=== PATIENT | male | born 1940 | race Caucasian/White ===

== ENCOUNTER 2017-07-20 08:15 | Day surgery (SDC) | payer OTHER ==
[~2017-07-20] VITALS: Ht 175.3 cm; Wt 107.0 kg
[~2017-07-20 08:15] MED LIST: CALCIUM500 M4 PO; COUMADIN2.5 MG PO; LASIX20 MG PO; LIPITOR40 MG PO; LISINOPRIL30 MG PO; METOPROLOL SUC100 MG PO; ULORIC80 MG PO; VITAMIN B-2100 MG PO
== END 2017-07-20 18:36 | disposition home or self-care (01) ==
LOC: CATH 08:15
DX: I25.10 Atherosclerotic heart disease of native coronary artery without angina pectoris (principal); I25.82 Chronic total occlusion of coronary artery; I12.9 Hypertensive chronic kidney disease with stage 1 through stage 4 chronic kidney disease, or unspecified chronic kidney disease; N18.3 Chronic kidney disease, stage 3 (moderate); I48.2 Chronic atrial fibrillation; E78.5 Hyperlipidemia, unspecified; E66.01 Morbid (severe) obesity due to excess calories; Z68.35 Body mass index [BMI] 35.0-35.9, adult; Z79.01 Long term (current) use of anticoagulants; G47.33 Obstructive sleep apnea (adult) (pediatric)
CPT/HCPCS: C1769; C1894; J1644; J2250; J3010; J7040